=== PATIENT | female | born 1980 | race Caucasian/White ===

== ENCOUNTER 2016-06-18 22:17 | Emergency (ER) | payer OTHER ==
[2016-06-18 22:26] VITALS: BP 175/97
[2016-06-18] MEDS ORDERED: ALBUTEROL SULFATE 2.5 MG/0.5 ML VIAL.NEB IH ONE ×2 (23:46→23:53)
[2016-06-18] MEDS ORDERED: predniSONE 20 MG TABLET PO ONE (23:47)
[2016-06-18] MEDS ORDERED: predniSONE 20 MG TABLET ONE (23:53)
--- NOTE | 2016-06-18 23:55 | ERNOTE ---
Time Seen by Provider: 06/18/16 23:32 Stated Complaint: COUGH, SOB Presenting Symptoms:: cough Source: patient Exam Limitations: no limitations Immunizations: IMMUNIZATION HX Immunizations Up to Date Yes History of Influenza Vaccine No Hx Pneumococcal Vaccination More Information Required Allergies/Adverse Reactions: Allergies adhesive tape Adverse Reaction (Verified 06/18/16 22:26) latex Adverse Reaction (Verified 06/18/16 22:26) Home Medications: HOME MEDICATIONS Albuterol Sulfate/Ipratropium [Duoneb 2.5-0.5MG/3ML Soln] 3 ml IH QID PRN [Last Taken Unknown] Cetirizine HCl [Zyrtec] 10 mg PO DAILY 05/08/15 [Last Taken Unknown] Cyanocobalamin (Vitamin B-12) [Vitamin B-12] 1,000 mcg SL DAILY 05/08/15 [Last Taken Unknown] Montelukast Sodium [Singulair] 10 mg PO DAILY 05/08/15 [Last Taken Unknown] Naproxen [Naprosyn] 500 mg PO BID PRN 05/08/15 [Last Taken Unknown] traMADol HCL [Ultram] 50 mg PO QID PRN 05/08/15 [Last Taken Unknown] Ibuprofen [Motrin] 1,200 mg PO 02/27/16 [Last Taken 02/26/16 11:45] Naproxen [Naprosyn] 500 mg PO BID PRN #60 tab 02/27/16 [Last Taken Unknown] - History of Present Ilness Narrative: Cough and SOB today, worse tonight and had to leave work. Would have used her nebulizer but she has lost her tubing and mask. She has albuterol and compressor. No hemoptysis, some anterior chest pain worse with cough. Does not smoke. Hx of asthma. Timing: getting worse Severity: moderate Frequency/Possible Cause: Reports: occasional episodes Modifying Factors - Worsens: Reports: activity Associated Symptoms: Reports: chest pain/soreness, cough, shortness of breath, wheezing Prior Treatment: Denies: recently seen Review of Systems - Review of Systems Constitutional: Present: no symptoms reported ENT: Present: no symptoms reported Respiratory: Present: shortness of breath, cough, wheezing Cardiology: Present: no symptoms reported Gastrointestinal/Abdominal: Present: no symptoms reported - Patient's Past Medical History Patient History - Medical: Anemia, GERD Patient History - Cardiac/Respiratory: No pertinent hx, Asthma Patient History - Cancer: No Hx of Cancer Patient History - Surgical Procedures: D & C, Tubal Ligation, Other - Social History Living Situations: home Smoking Status: Never smoker Have you smoked in the past 12 months: No Do you dip or chew tobacco: No Alcohol Use: rarely Drug Use: none Physical Exam - Physical Exam General Appearance: Present: wd/wn, alert, mild distress Eye Exam: Normal inspection: bilateral, PERRL: bilateral Neck: Present: normal inspection, nontender. Absent: lymphadenopathy (R), lymphadenopathy (L) Respiratory: Present: no respiratory distress, decreased breath sounds, rhonchi , wheezing. Absent: crackles, rales Cardiovascular/Chest: Present: regular rate, rhythm, no murmur Extremity Exam: Present: normal inspection Neurological Exam: Present: alert, normal mood/affect Skin Exam: Present: normal color ED Progress - Vital Signs Patient's Vital Signs:: I have reviewed the patient's vital signs. Vital Signs: Vital Signs 06/18/16 22:22 Temperature 35.8 C L Pulse Rate 95 Respiratory 14 Rate Blood Pressure 175/97 O2 Sat by Pulse 98 Oximetry - Progress/Reassessment Chief Complaint: Upper Respiratory Symptoms Plan - Plan Plan: Single dose prednisone. Enable utilization of nebulizer at home. Departure - Departure Clinical Impression: Asthma attack Disposition: Home self-care Condition: Good Instructions: Asthma, Adult, [id number] Additional Instructions: Use the nebulizer every 4-6 hours as needed. Avoid smoke and dust. follow up with your doctor if further problems. Referrals: Donna Lyles FNP [Primary Care Provider] -
== END 2016-06-19 00:43 | disposition home or self-care (01) ==
LOC: ER 22:17
DX: J45.901 Unspecified asthma with (acute) exacerbation (principal)

== ENCOUNTER 2017-01-29 20:26 | Emergency (ER) | payer OTHER ==
[2017-01-29] MEDS ORDERED: ORPHENADRINE CITRATE 30 MG/ML VIAL IM ONE (20:44)
[2017-01-29] MEDS ORDERED: KETOROLAC TROMETHAMINE 60 MG/2 ML VIAL IM ONE ×2 (20:44→20:46)
[2017-01-29] MEDS ORDERED: ORPHENADRINE CITRATE 30 MG/ML VIAL ONE (20:46)
[2017-01-29 21:18] VITALS: BP 153/91
--- NOTE | 2017-01-29 21:28 | ERNOTE ---
Medical Problem HPI - Narrative Date of Service: 01/29/17 - General Chief Complaint: Neck Pain/Injury Time Seen by Provider: 01/29/17 20:35 Source: patient Exam Limitations: no limitations - Immun/Allergies/Home Medications Immunizations: IMMUNIZATION HX Immunizations Up to Date Yes History of Influenza Vaccine No Hx Pneumococcal Vaccination More Information Required Allergies/Adverse Reactions: Allergies adhesive tape Adverse Reaction (Verified 01/29/17 20:34) latex Adverse Reaction (Verified 01/29/17 20:34) Home Medications: HOME MEDICATIONS Montelukast Sodium [Singulair] 10 mg PO DAILY 05/08/15 [Last Taken Unknown] traMADol HCL [Ultram] 50 mg PO QID PRN 05/08/15 [Last Taken Unknown] Naproxen [Naprosyn] 500 mg PO BID PRN #60 tab 02/27/16 [Last Taken Unknown] Cetirizine HCl [Zyrtec] 10 mg PO DAILY 01/29/17 [Last Taken Unknown] Chrom Armida/Brindal Mccabe [Garcinia Cambogia Tablet] 3 tab PO BID 01/29/17 [Last Taken Unknown] Cyclobenzaprine HCl 10 mg PO TID PRN 01/29/17 [Last Taken Unknown] Omeprazole [Prilosec] 20 mg PO DAILY 01/29/17 [Last Taken Unknown] Spironolactone [Aldactone] 50 mg PO DAILY 01/29/17 [Last Taken Unknown] amLODIPine BESYLATE [Norvasc] 5 mg PO DAILY 01/29/17 [Last Taken Unknown] - History of Present History Narrative: Pt. comes in with c/o neck pain and diaphragmatic pain for months that is chronic for her. Pt. is under treatment by her physician for this and states taht her medications for this usually work but did not take her medications today and the pain returned. Pt. denies that this pain is new or different for her. Review of Systems - Review of Systems Constitutional: Present: no symptoms reported. Absent: recent illness, fever, chills, fatigue, malaise EYE: Present: no symptoms reported ENT: Present: no symptoms reported Respiratory: Present: no symptoms reported. Absent: shortness of breath, cough , wheezing Cardiology: Present: no symptoms reported. Absent: chest pain, palpitations, edema Gastrointestinal/Abdominal: Present: abdominal pain - diaphragm pain Genitourinary: Present: no symptoms reported Musculoskeletal: Present: neck pain - B trapezius muscle Skin: Present: no symptoms reported. Absent: rash Neurological: Present: no symptoms reported All Other Systems: All systems neg except as marked - Patient's Past Medical History Patient History - Medical: Anemia, GERD Patient History - Cardiac/Respiratory: Asthma, Hypertension Patient History - Cancer: No Hx of Cancer Patient History - Surgical Procedures: D & C, Tubal Ligation, Other Patient History - Other: None - Social History Living Situations: home Abuse History: No History of abuse Psych History: No pertinent hx Smoking Status: Never smoker Have you smoked in the past 12 months: No Alcohol Use: rarely Drug Use: none - Immunizations Immunizations Up to Date: Yes Hx Pneumococcal Vaccination: More Information Required to Determine History of Influenza Vaccine: No Physical Exam - Physical Exam General Appearance: Present: wd/wn, alert, no apparent distress Eye Exam: Normal inspection: bilateral, PERRL: bilateral, EOMI: bilateral Ears, Nose, Throat: Present: normal ENT inspection Neck: Present: normal inspection, nontender Respiratory: Present: no respiratory distress, normal breath sounds, no accessory muscle use, chest nontender, lungs clear Cardiovascular/Chest: Present: regular rate, rhythm, no murmur, normal peripheral pulses Gastrointestinal/Abdominal: Present: tenderness - L 10th rib intercostal tenderness Back Exam: Present: normal inspection, normal range of motion, no CVA tenderness , no vertebral tenderness Extremity Exam: Present: normal inspection, non-tender, normal range of motion, no edema Neurological Exam: Present: alert, oriented, normal mood/affect, no motor/ sensory deficits Skin Exam: Present: normal color, warm/dry ED Progress - Vital Signs Patient's Vital Signs:: I have reviewed the patient's vital signs. Vital Signs: Vital Signs 01/29/17 20:29 Temperature 36.5 C Pulse Rate 92 Respiratory 14 Rate Blood Pressure 187/100 O2 Sat by Pulse 100 Oximetry - Progress/Reassessment Chief Complaint: Neck Pain/Injury Progress:: Unchanged Departure - Departure Clinical Impression: Neck pain, Costal chondritis Disposition: Home self-care Condition: Good Instructions: Cervical Radiculopathy, Costochondritis, [id number] Additional Instructions: Please follow up with your primary provider and take the medications that she has prescribed as ordered. Referrals: Donna Lyles FNP [Primary Care Provider] -
== END 2017-01-29 21:17 | disposition home or self-care (01) ==
LOC: ER 20:26
DX: M54.2 Cervicalgia (principal); M94.0 Chondrocostal junction syndrome [Tietze]; D64.9 Anemia, unspecified; K21.9 Gastro-esophageal reflux disease without esophagitis; I10 Essential (primary) hypertension

== ENCOUNTER 2017-03-26 20:41 | Emergency (ER) | payer OTHER ==
[2017-03-26] MEDS ORDERED: ORPHENADRINE CITRATE 30 MG/ML VIAL IV ONE (21:33)
[2017-03-26] MEDS ORDERED: KETOROLAC TROMETHAMINE 60 MG/2 ML VIAL IM ONE ×2 (21:33→21:53)
--- NOTE | 2017-03-26 21:36 | ERNOTE ---
Medical Problem HPI - General Chief Complaint: General Assessment Time Seen by Provider: 03/26/17 21:20 Source: patient Exam Limitations: no limitations - Immun/Allergies/Home Medications Immunizations: IMMUNIZATION HX Immunizations Up to Date Yes History of Influenza Vaccine No Hx Pneumococcal Vaccination More Information Required Allergies/Adverse Reactions: Allergies adhesive tape Adverse Reaction (Verified 01/29/17 20:34) latex Adverse Reaction (Verified 01/29/17 20:34) Home Medications: HOME MEDICATIONS Montelukast Sodium [Singulair] 10 mg PO DAILY 05/08/15 [Last Taken Unknown] traMADol HCL [Ultram] 50 mg PO QID PRN 05/08/15 [Last Taken Unknown] Naproxen [Naprosyn] 500 mg PO BID PRN #60 tab 02/27/16 [Last Taken Unknown] Cyclobenzaprine HCl 10 mg PO TID PRN 01/29/17 [Last Taken Unknown] Omeprazole [Prilosec] 20 mg PO DAILY 01/29/17 [Last Taken Unknown] Spironolactone [Aldactone] 50 mg PO DAILY 01/29/17 [Last Taken Unknown] amLODIPine BESYLATE [Norvasc] 5 mg PO DAILY 01/29/17 [Last Taken Unknown] Loratadine [Claritin] 10 mg PO DAILY 03/26/17 [Last Taken Unknown] - History of Present History Narrative: Pt has a cough that has been treated over the past 3-4 weeks. Today she began to cough and had muscle spasm and pain in her thoracic spine, ribs and left arm. Left arm pain is nearly resolved but she still has spasm and pain throughout the thoracic region. Pt was seen here for similar complaints 2 months ago but she states this is different but cannot explain how it is different Timing: constant Severity: moderate, severe Modifying Factors - (Improves): Present: immobilization Modifying Factors - (Worsens): Present: movement Review of Systems - Review of Systems Constitutional: Present: recent illness - cough. Absent: fever, chills EYE: Present: no symptoms reported ENT: Present: nose congestion Respiratory: Present: cough, wheezing Cardiology: Absent: palpitations Gastrointestinal/Abdominal: Absent: nausea, vomiting Genitourinary: Present: no symptoms reported Musculoskeletal: Present: See HPI. Absent: joint swelling Skin: Absent: rash Neurological: Absent: numbness, tingling Endocrine: Absent: flushing Hematologic/Lymphatic: Absent: easy bruising Psych: Present: other - stressful situations lately - Patient's Past Medical History Patient History - Medical: Anemia, GERD Patient History - Cardiac/Respiratory: Asthma, Hypertension Patient History - Cancer: No Hx of Cancer Patient History - Surgical Procedures: D & C, Tubal Ligation, T & A, Other, Orthopedic Patient History - Other: None LMP (females 10-50): now - Social History Living Situations: significant other Abuse History: No History of abuse Psych History: No pertinent hx Smoking Status: Never smoker Have you smoked in the past 12 months: No Do you dip or chew tobacco: No Alcohol Use: rarely Drug Use: none - Immunizations Immunizations Up to Date: Yes Hx Pneumococcal Vaccination: More Information Required to Determine History of Influenza Vaccine: No Physical Exam - Physical Exam General Appearance: Present: wd/wn, alert, mild distress Head Exam: Present: normal inspection, no evidence of injury Eye Exam: Normal inspection: bilateral Neck: Present: supple, limited range of motion, tender lateral Respiratory: Present: no respiratory distress, normal breath sounds, no accessory muscle use, lungs clear Cardiovascular/Chest: Present: regular rate, rhythm, no murmur, normal peripheral pulses Gastrointestinal/Abdominal: Present: nontender, soft Back Exam: Present: muscle spasm - throughout. Absent: vertebral tenderness Extremity Exam: Present: normal inspection, normal range of motion, no edema Neurological Exam: Present: alert, oriented, no motor/sensory deficits Skin Exam: Present: normal color, warm/dry Lymphatic Exam: Present: no adenopathy ED Progress - Results and Orders Patient's Lab Results:: I have reviewed the patient's lab results. Results and Orders: Laboratory Tests 03/26/17 03/26/17 03/26/17 21:46 21:46 21:46 WBC 5.4 Hgb 9.3 L Hct 32.4 L Plt Count 271 ESR 16 H Creatine Kinase 86 C-Reactive Prot, Quant 0.8 - Vital Signs Patient's Vital Signs:: I have reviewed the patient's vital signs. Vital Signs: Vital Signs 03/26/17 20:52 Temperature 36.7 C Pulse Rate 85 Respiratory 16 Rate Blood Pressure 168/95 O2 Sat by Pulse 99 Oximetry - Progress/Reassessment Chief Complaint: General Assessment Progress:: Improved Progress Note-Subjective: 03/26/17 22:33 discussed muscle spasms with patient and encouraged making sure she had good intake of calcium, magnesium and potassium as well as staying hydrated, pt expressed understanding. Departure Clinical Impression: Spasm of muscle, back - Departure Disposition: Home self-care Condition: Good Instructions: Muscle Cramps and Spasms Additional Instructions: Increase your intake of potassium, magnesium and calcium through your diet or supplementation. Make sure you are drinking 2-3 quarts of water a day. Take the muscle relaxer that you have regularly for 2-3 days. See you primary provider if you continue to have problems Referrals: Donna Lyles, CHARIS [Primary Care Provider] -
[2017-03-26] MEDS ORDERED: ORPHENADRINE CITRATE 30 MG/ML VIAL ONE (21:53)
[2017-03-26] MEDS ORDERED: ORPHENADRINE CITRATE 30 MG/ML VIAL IM ONE (21:54)
[2017-03-26 21:57] LABS: Hematocrit 32.4 % (37.0-47.0); Hemoglobin 9.3 gm/dL (12.5-16.0); Mean Corpuscular Hemoglobin 18.9 pg (27-31); Mean Corpuscular Hgb Conc 28.7 g/dl (32-36); Mean Platelet Volume 9.5 fl (6.0-9.5); Neutrophil # 2.9 K/mm3 (1.3-6.0); Platelet Count 271 K/mm3 (150-450); Red Blood Count 4.91 M/mm3 (4.2-5.4); Red Cell Distribution Width 19.9 % (11.5-14.0); White Blood Count 5.4 K/mm3 (4.0-10.5)
[2017-03-26 22:28] LABS: CRP 0.8 mg/dL (0.0-0.9)
[2017-03-26 22:44] VITALS: BP 153/98
== END 2017-03-26 22:44 | disposition home or self-care (01) ==
LOC: ER 20:41
DX: M62.830 Muscle spasm of back (principal)